=== PATIENT | female | born 1950 | race Caucasian/White ===

== ENCOUNTER 2016-09-02 15:21 | Outpatient (CLI) | payer MEDICARE, OTHER ==
--- NOTE | 2016-09-03 09:31 | XRAY Report ---
FOUR VIEW RIGHT WRIST: 09/02/2016 CLINICAL INDICATION: Pain. FINDINGS: AP, lateral, oblique, and scaphoid views of the right wrist demonstrate a minimally displa sharlene transverse distal radial fracture, and a minimally displaced ulnar styloid fracture. Mild osteoar thritis is present. No radiopaque foreign body is seen in the soft tissues. IMPRESSION: MINIMALLY DISPLACED DISTAL RADIAL SHAFT FRACTURE AND ULNAR STYLOID FRACTURE. JOB #: [id number] EXT JOB #:[id number]
== END 2016-09-02 15:22 | disposition home or self-care (01) ==
LOC: DI 15:21
PROVIDERS: ATTEND Internal Medicine
DX: S52.301A Unspecified fracture of shaft of right radius, initial encounter for closed fracture (principal); S52.611A Displaced fracture of right ulna styloid process, initial encounter for closed fracture

== ENCOUNTER 2016-10-01 12:58 | Outpatient (CLI) | payer MEDICARE, OTHER ==
[2016-10-01 17:38] LABS: BILIRUBIN,URINE NEGATIVE (NEGATIVE)
[2016-10-01 17:47] LABS: BASOPHILS # (AUTO) 0.1 10^3/uL (0.0-0.1); EOSINOPHILS # (AUTO) 0.2 10^3/uL (0.0-0.7); EOSINOPHILS % (AUTO) 2.8 %; HCT - HEMATOCRIT 41.8 % (37.0-47.0); HGB - HEMOGLOBIN 13.9 g/dL (12.0-16.0); LYMPHOCYTES # (AUTO) 1.6 10^3/uL (1.5-3.5); LYMPHOCYTES % (AUTO) 27.4 %; MEAN CORPUSCULAR HEMOGLOBIN 30.1 pg (27.0-31.0); MEAN CORPUSCULAR HGB CONC 33.2 g/dL (32.0-36.0); MEAN CORPUSCULAR VOLUME 90.8 fL (81.0-99.0); MEAN PLATELET VOLUME 9.7 fL (7.9-10.8); MONOCYTES # (AUTO) 0.4 10^3/uL (0.0-1.0); MONOCYTES % (AUTO) 7.7 %; NEUTROPHILS # (AUTO) 3.5 10^3/uL (1.5-6.6); NEUTROPHILS % (AUTO) 61.1 %; RED CELL DISTRIBUTION WIDTH 13.3 % (12.0-15.0); UNCORRECTED WHITE BLOOD COUNT 5.7 x10^3/uL; WHITE BLOOD COUNT 5.7 x10^3/uL (4.8-10.8)
[2016-10-01 18:15] LABS: ALBUMIN/GLOBULIN RATIO 1.9 (1.0-2.2); BILIRUBIN,TOTAL 0.8 mg/dL (0.2-1.0); BUN - BLOOD UREA NITROGEN 17 mg/dL (6-20); CALCIUM 9.2 mg/dL (8.5-10.3); CARBON DIOXIDE - CO2 29 mmol/L (21-32); CHLORIDE 105 mmol/L (101-111); CHOL/HDL RATIO 2.6 (<4.4); CHOLESTEROL 161 mg/dL; CREATININE 0.5 mg/dL (0.4-1.0); GFR - MDRD 123 (>89); GLUCOSE 137 mg/dL (70-100); HDL CHOLESTEROL 63 mg/dL; LDL/HDL RATIO 1.4 (<4.4); POTASSIUM 3.7 mmol/L (3.5-5.0); SODIUM 141 mmol/L (135-145); TOTAL PROTEIN 6.6 g/dL (6.7-8.2); TRIGLYCERIDES 51 mg/dL; VLDL CHOLESTEROL 10 mg/dL; WBC,URINE 0-3 /HPF (0-5)
[2016-10-02 04:26] LABS: TEST RESULT REPORT (())
== END 2016-10-01 12:59 | disposition home or self-care (01) ==
LOC: LAB.F 12:58
PROVIDERS: ATTEND Internal Medicine
DX: I10 Essential (primary) hypertension (principal); Z20.6 Contact with and (suspected) exposure to human immunodeficiency virus [HIV]
CPT/HCPCS: 36415; 80053; 80061; 81001; 81599; 84443; 85025; 87491; 87591; G0475; 87389

== ENCOUNTER 2016-11-20 15:04 | Outpatient (CLI) | payer MEDICARE, OTHER | END 2016-11-20 15:05 | disposition home or self-care (01) | LOC: LAB.F 15:04 | PROVIDERS: ATTEND Internal Medicine | DX: Z11.59 Encounter for screening for other viral diseases (principal) | CPT/HCPCS: 36415; 86803 ==

== ENCOUNTER 2019-11-07 08:00 | Outpatient (CLI) | payer MEDICARE, OTHER ==
--- NOTE | 2019-11-07 15:29 | XRAY Report ---
PROCEDURE: Hip w/Pelvis 1V LT INDICATIONS: LEFT HIP PAIN TECHNIQUE: AP pelvis with lateral view(s) of the left hip(s). COMPARISON: None. FINDINGS: Bones: No fractures or dislocations. Pelvic ring appears intact. No suspicious bony lesions. Note is made of a mild to moderate degree of hip joint osteoarthritis that appears slightly more prominen t on the left than the right. Soft tissues: The visualized bowel gas pattern is normal. No suspicious soft tissue calcifications. IMPRESSION: Asymmetric mild to moderate hip joint osteoarthritis, greater on the left than the right . No trauma found. Reviewed by: Gage Richard MD on 11/07/2019 3:27 PM PDT Approved by: Gage Richard MD on 11/07/2019 3:27 PM PDT Station ID: [id number]
--- NOTE | 2019-11-07 15:42 | XRAY Report ---
PROCEDURE: Ankle 3 View RT INDICATIONS: SPRAIN OF RIGHT ANKLE TECHNIQUE: 3 views of the ankle were acquired. COMPARISON: X-ray toes, foot 11/07/2019 FINDINGS: Bones: No fractures or dislocations. Ankle mortise is normally aligned. No suspicious bony lesions . Soft tissues: Mild lateral malleolar edema. Achilles tendon appears normal. IMPRESSION: Mild edema. No visualized acute fracture or dislocation. However, occult injury cannot b e excluded. Recommend short interval imaging follow-up in 7-10 days as clinically indicated for addit ional evaluation. Reviewed by: Jolene Valderrama MD on 11/07/2019 3:40 PM PDT Approved by: Jolene Valderrama MD on 11/07/2019 3:40 PM PDT Station ID: [id number]
--- NOTE | 2019-11-07 15:42 | XRAY Report ---
PROCEDURE: Toe(s) LT INDICATIONS: CONTUSION TO RIGHT GREAT TOE TECHNIQUE: 3 views of the first toe(s) acquired. COMPARISON: X-ray foot and ankle 11/07/2019 FINDINGS: Bones: No fractures or dislocations. No suspicious bony lesions. Soft tissues: No suspicious soft tissue densities. IMPRESSION: No visualized acute fracture or dislocation. However, occult injury cannot be excluded. Recommend kamaljit rt interval imaging follow-up in 7-10 days as clinically indicated for additional evaluation. Reviewed by: Jolene Valderrama MD on 11/07/2019 3:41 PM PDT Approved by: Jolene Valderrama MD on 11/07/2019 3:41 PM PDT Station ID: [id number]
--- NOTE | 2019-11-07 15:43 | XRAY Report ---
PROCEDURE: Foot 3 View RT INDICATIONS: CONTUSION OF RIGHT FOOT TECHNIQUE: 3 views of the foot were acquired. COMPARISON: X-ray ankle and toes 11/07/2019 FINDINGS: Bones: No fractures or dislocations. No suspicious bony lesions. Soft tissues: No tibiotalar joint effusion. Achilles tendon appears normal. IMPRESSION: No visualized acute fracture or dislocation. However, occult injury cannot be excluded. Recommend kamaljit rt interval imaging follow-up in 7-10 days as clinically indicated for additional evaluation. Reviewed by: Jolene Valderrama MD on 11/07/2019 3:41 PM PDT Approved by: Jolene Valderrama MD on 11/07/2019 3:41 PM PDT Station ID: [id number]
== END 2019-11-07 23:59 | disposition home or self-care (01) ==
LOC: DI.S 08:00
PROVIDERS: ATTEND Emergency Medicine
DX: S76.012A Strain of muscle, fascia and tendon of left hip, initial encounter (principal); S93.491A Sprain of other ligament of right ankle, initial encounter; S90.31XA Contusion of right foot, initial encounter; S90.112A Contusion of left great toe without damage to nail, initial encounter; M16.0 Bilateral primary osteoarthritis of hip
CPT/HCPCS: 73660

== ENCOUNTER 2022-07-15 14:10 | Outpatient (CLI) | payer MEDICARE ==
[2022-07-15 19:54] LABS: BASOPHILS # (AUTO) 0.1 10^3/uL (0.0-0.1); EOSINOPHILS # (AUTO) 0.2 10^3/uL (0.0-0.7); EOSINOPHILS % (AUTO) 2.7 %; HCT - HEMATOCRIT 43.9 % (37.0-47.0); HGB - HEMOGLOBIN 14.2 g/dL (12.0-16.0); LYMPHOCYTES # (AUTO) 2.2 10^3/uL (1.5-3.5); LYMPHOCYTES % (AUTO) 33.4 %; MEAN CORPUSCULAR HEMOGLOBIN 30.3 pg (27.0-31.0); MEAN CORPUSCULAR HGB CONC 32.3 g/dL (32.0-36.0); MEAN CORPUSCULAR VOLUME 93.8 fL (81.0-99.0); MEAN PLATELET VOLUME 11.4 fL (7.9-10.8); MONOCYTES # (AUTO) 0.6 10^3/uL (0.0-1.0); MONOCYTES % (AUTO) 8.2 %; NEUTROPHILS # (AUTO) 3.7 10^3/uL (1.5-6.6); NEUTROPHILS % (AUTO) 54.6 %; PLT - PLATELET COUNT 235 10^3/uL (130-450); RED BLOOD COUNT 4.68 10^6/uL (4.20-5.40); RED CELL DISTRIBUTION WIDTH 12.9 % (12.0-15.0); WHITE BLOOD COUNT 6.7 x10^3/uL (4.8-10.8)
[2022-07-15 20:05] LABS: ALBUMIN 4.1 g/dL (3.2-5.5); ALBUMIN/GLOBULIN RATIO 1.4 (1.0-2.2); ALKALINE PHOSPHATASE 49 IU/L (42-121); ALT ALANINE AMINOTRANSFERASE 25 IU/L (10-60); AST ASPARTATE AMINOTRANSFERASE 22 IU/L (10-42); BILIRUBIN,TOTAL 0.9 mg/dL (0.2-1.0); BUN - BLOOD UREA NITROGEN 16 mg/dL (6-20); CALCIUM 9.3 mg/dL (8.5-10.3); CARBON DIOXIDE - CO2 30 mmol/L (21-32); CHLORIDE 104 mmol/L (101-111); CHOL/HDL RATIO 2.8 (<4.4); CHOLESTEROL 193 mg/dL; CREATININE 0.6 mg/dL (0.4-1.0); GFR - MDRD 98 (>89); GLUCOSE 106 mg/dL (70-100); HDL CHOLESTEROL 69 mg/dL; LDL CHOLESTEROL,CALCULATED 114 mg/dL; LDL/HDL RATIO 1.7 (<4.4); POTASSIUM 4.6 mmol/L (3.5-5.0); SODIUM 140 mmol/L (135-145); TRIGLYCERIDES 49 mg/dL; VLDL CHOLESTEROL 10 mg/dL
[2022-07-15 20:07] LABS: ESTIMATED AVERAGE GLUCOSE 105 mg/dL (70-100); HEMOGLOBIN A1c% 5.3 % (4.27-6.07)
== END 2022-07-15 14:11 | disposition home or self-care (01) ==
LOC: LAB.S 14:10
PROVIDERS: ATTEND Internal Medicine
DX: I10 Essential (primary) hypertension (principal); Z86.79 Personal history of other diseases of the circulatory system; Z13.228 Encounter for screening for other metabolic disorders
CPT/HCPCS: 36415; 80053; 80061; 83036; 83721; 85025

== ENCOUNTER 2022-08-20 14:41 | Outpatient (CLI) | payer MEDICARE, OTHER | END 2022-08-20 14:42 | disposition home or self-care (01) | LOC: MAC.MOP 14:41 | PROVIDERS: ATTEND Internal Medicine | DX: Z86.79 Personal history of other diseases of the circulatory system (principal) | CPT/HCPCS: 93242 ==

== ENCOUNTER 2022-08-27 10:30 | Outpatient (CLI) | payer MEDICARE, OTHER | END 2022-08-27 10:31 | disposition home or self-care (01) | LOC: MAC.INF 10:30 | PROVIDERS: ATTEND Internal Medicine | DX: I45.4 Nonspecific intraventricular block (principal); I47.1 Supraventricular tachycardia; I49.1 Atrial premature depolarization; I49.3 Ventricular premature depolarization | CPT/HCPCS: 93244 ==

== ENCOUNTER 2022-09-23 15:09 | Outpatient (CLI) | payer MEDICARE, OTHER | END 2022-09-23 15:10 | disposition home or self-care (01) | LOC: DI 15:09 | PROVIDERS: ATTEND Internal Medicine | DX: Z86.79 Personal history of other diseases of the circulatory system (principal); R01.1 Cardiac murmur, unspecified; I34.81 Nonrheumatic mitral (valve) annulus calcification | CPT/HCPCS: 93306 ==